=== PATIENT | male | born 1990 | race African-American/Black ===

== ENCOUNTER 2018-01-30 04:24 | Inpatient (IN) | payer MEDICAID, OTHER ==
[~2018-01-30] VITALS: Ht 177.8 cm; Wt 92.1 kg
[~2018-01-30 04:24] MED LIST: HALOPERIDOL 5 MG TABLET PO PRN; LORazepam 2 MG TABLET PO PRN; NOCURR; ZOLPIDEM TARTRATE 10 MG TABLET PO PRN
[2018-01-30] MEDS ORDERED: DiphenhydrAMINE HCL 50 MG/ML VIAL IM ONE (08:45)
[2018-01-30] MEDS ORDERED: LORazepam 2 MG/ML VIAL IM ONE (08:45)
[2018-01-30] MEDS ORDERED: HALOPERIDOL LACTATE 5 MG/ML VIAL IM ONE (08:45)
[2018-01-30] MEDS ORDERED: MAGNESIUM HYDROXIDE SUSPENSION 30 ML UDCUP PO PRN (11:00)
[2018-01-30] MEDS ORDERED: LOPERAMIDE HCL 2 MG CAPSULE PO PRN (11:00)
[2018-01-30] MEDS ORDERED: ONDANSETRON HCL 4 MG TABLET PO PRN (11:00)
[2018-01-30] MEDS ORDERED: BENZOCAINE/MENTHOL LOZENGE [8 LOZENGES/PACKET] MM PRN (11:00)
[2018-01-30] MEDS ORDERED: MAG HYDROX/AL HYDROX/SIMETH ES 30 ML SUSPENSION UDCUP PO PRN (11:00)
[2018-01-30] MEDS ORDERED: ALBUTEROL SULFATE HFA 90 MCG/PUFF 8 GM INHALER IH PRN (11:00)
[2018-01-30] MEDS ORDERED: BACITRACIN 28.4 GM OINTMENT TP PRN (11:00)
[2018-01-30] MEDS ORDERED: IBUPROFEN 600 MG TABLET PO PRN (11:00)
[2018-01-30] MEDS ORDERED: ACETAMINOPHEN 325 MG TABLET PO PRN (11:00)
[2018-01-30] MEDS ORDERED: CloNIDine HCL 0.1 MG TABLET PO PRN (11:00)
[2018-01-30] MEDS ORDERED: PETROLATUM,WHITE 71 GM JELLY TP PRN (11:00)
[2018-01-30 20:56] VITALS: BP 148/96
[2018-01-31 08:56] VITALS: BP 105/86
== END 2018-01-31 13:20 | disposition home or self-care (01) | DRG 750 ==
LOC: EMS 04:24 → 3EI 04:30 → 3EC 10:01
DX: F25.0 Schizoaffective disorder, bipolar type (principal); R45.851 Suicidal ideations; F41.9 Anxiety disorder, unspecified; F12.90 Cannabis use, unspecified, uncomplicated; G47.00 Insomnia, unspecified; M19.90 Unspecified osteoarthritis, unspecified site; M25.50 Pain in unspecified joint; F60.9 Personality disorder, unspecified; M79.673 Pain in unspecified foot; Z71.51 Drug abuse counseling and surveillance of drug abuser; Z79.899 Other long term (current) drug therapy
CPT/HCPCS: 99285

== ENCOUNTER 2022-05-23 20:23 | Inpatient (IN) | payer MEDICAID, OTHER ==
[~2022-05-23] VITALS: Ht 177.8 cm; Wt 121.4 kg
[~2022-05-23 20:23] MED LIST changes: -HALOPERIDOL 5 MG TABLET PO PRN; -LORazepam 2 MG TABLET PO PRN; -ZOLPIDEM TARTRATE 10 MG TABLET PO PRN
[2022-05-23] MEDS ORDERED: LORazepam 1 MG TABLET PO ONE (22:00)
[2022-05-23] MEDS ORDERED: OLANZapine 5 MG TABLET PO ONE (22:00)
[2022-05-23 22:08] LABS: BASOPHILS % (AUTO) 0.3 % (0.0-2.0); EOSINOPHILS % (AUTO) 1.1 % (1.0-6.0); HEMATOCRIT 40.6 % (41-53); HEMOGLOBIN 13.6 g/dL (13.5-17.5); LYMPHOCYTES # (AUTO) 2.3 K/uL (1.0-4.8); LYMPHOCYTES % (AUTO) 28.5 % (22.0-44.0); MEAN CORPUSCULAR HEMOGLOBIN 28.9 pg (26.0-34.0); MEAN CORPUSCULAR HGB CONC 33.5 G/dL (31.0-37.0); MEAN CORPUSCULAR VOLUME 86 fL (80-100); MONOCYTES # (AUTO) 0.5 K/uL (0.1-1.0); MONOCYTES % (AUTO) 6.5 % (2.0-9.0); NEUTROPHILS # (AUTO) 5.2 K/uL (1.8-7.7); NEUTROPHILS % (AUTO) 63.6 % (40.0-70.0); PLATELET COUNT (AUTO) 199 K/uL (150-450); RED CELL DISTRIBUTION WIDTH 14.7 % (11.5-14.5)
[2022-05-23 22:09] LABS: COVID AG,FIA SOURCE NASOPHARYNGEAL
[2022-05-23 22:17] LABS: ANION GAP 7 mmol/L (8-16); CALCIUM, TOTAL 9.8 mg/dL (8.8-10.5); CARBON DIOXIDE 31 mmol/L (22-29); CHLORIDE 102 mmol/L (98-107); CREATININE 0.96 mg/dL (0.60-1.30); GLOMERULAR FILTR. RATE CALC > 60 mL/min (>60); GLUCOSE,RANDOM 107 mg/dL (70-110); POTASSIUM 4.4 mmol/L (3.5-5.1); SODIUM SERUM 140 mmol/L (136-145); UREA NITROGEN, BLOOD 16 mg/dL (7-18)
[2022-05-23 22:22] LABS: ALANINE AMINOTRANSFERASE 59 U/L (12-78); ALBUMIN 3.6 g/dL (3.4-5.0); ALKALINE PHOSPHATASE 42 U/L (46-116); ASPARTATE AMINOTRANSFERASE 76 U/L (15-37); BILIRUBIN,TOTAL 0.2 mg/dL (0.1-1.0); TOTAL PROTEIN, SERUM 7.7 g/dL (6.4-8.2)
[2022-05-23] MEDS ORDERED: HALOPERIDOL 5 MG TABLET PO PRN (23:45)
[2022-05-24] LABS: APPEARANCE,URINE CLEAR (CLEAR); BILIRUBIN,URINE NEGATIVE (NEGATIVE); GLUCOSE, URINE (UA) NEGATIVE (NEGATIVE); KETONES,URINE NEGATIVE (NEGATIVE); LEUKOCYTE ESTERASE ,URINE NEGATIVE (NEGATIVE); NITRATE,URINE NEGATIVE (NEGATIVE); OCCULT BLOOD,URINE NEGATIVE (NEGATIVE); PROTEIN,URINE NEGATIVE (NEGATIVE); SPECIFIC GRAVITIY, URINE 1.026 (1.003-1.030); UROBILINOGEN,URINE <=1.0 mg/dL (<=1.0)
[2022-05-24 00:06] LABS: AMPHET/METH SCREEN,URINE NEGATIVE (NEGATIVE); BARBITURATE SCREEN, URINE NEGATIVE (NEGATIVE); BENZODIAZEPINES SCREEN,URINE NEGATIVE (NEGATIVE); CANNABINOID SCREEN,URINE POSITIVE (NEGATIVE); COCAINE SCREEN,URINE NEGATIVE (NEGATIVE); METHADONE SCREEN, URINE NEGATIVE (NEGATIVE); OPIATE SCREEN,URINE NEGATIVE (NEGATIVE)
[2022-05-24 00:07] LABS: PHENCYCLIDINE SCREEN,URINE POSITIVE (NEGATIVE)
[2022-05-24] MEDS: LORazepam 2 MG TABLET PO PRN ×2 (04:38→09:06)
[2022-05-24] MEDS: QUEtiapine FUMARATE 100 MG TABLET PO PRN ×2 (12:01→22:59)
[2022-05-24] MEDS ORDERED: DiphenhydrAMINE HCL 50 MG/ML VIAL IM ONE (15:00)
[2022-05-24] MEDS ORDERED: LORazepam 2 MG/ML VIAL IM ONE (15:00)
[2022-05-24] MEDS ORDERED: ChlorproMAZINE HCL 50 MG/2 ML AMP IM ONE (15:45)
[2022-05-24] MEDS ORDERED: MIDAZOLAM HCL 5 MG/ML VIAL IM ONE ×2 (18:40→18:45)
[2022-05-24 20:31] VITALS: BP 168/119
[2022-05-24] MEDS ORDERED: LOPERAMIDE HCL 2 MG CAPSULE PO PRN (21:30)
[2022-05-24] MEDS ORDERED: ONDANSETRON HCL 4 MG TABLET PO PRN (21:30)
[2022-05-24] MEDS ORDERED: DOCUSATE SODIUM 100 MG CAPSULE PO PRN (21:30)
[2022-05-24] MEDS ORDERED: MAG HYDROX/AL HYDROX/SIMETH ES 30 ML SUSPENSION UDCUP PO PRN (21:30)
[2022-05-24] MEDS ORDERED: NICOTINE 14 MG/24 HOUR PATCH TD PRN (21:30)
[2022-05-24] MEDS ORDERED: IBUPROFEN 400 MG TABLET PO PRN (21:30)
[2022-05-24] MEDS ORDERED: PETROLATUM,WHITE 28 GM JELLY TP PRN (21:30)
[2022-05-24] MEDS ORDERED: ALBUTEROL SULFATE HFA 90 MCG/PUFF 8 GM INHALER IH PRN (21:30)
[2022-05-24] MEDS ORDERED: CloNIDine HCL 0.1 MG TABLET PO PRN (21:30)
[2022-05-24] MEDS ORDERED: MAGNESIUM HYDROXIDE SUSPENSION 30 ML UDCUP PO PRN (21:30)
[2022-05-24] MEDS ORDERED: ACETAMINOPHEN 325 MG TABLET PO PRN (21:30)
[2022-05-24] MEDS ORDERED: GuaiFENesin/D-METHORPHAN [SUGAR-FREE] 200-20MG/10 ML SYRUP UDCUP PO PRN (21:30)
[2022-05-24] MEDS: ZOLPIDEM TARTRATE 10 MG TABLET PO PRN (22:59)
[2022-05-25 08:41] VITALS: BP 138/104
[2022-05-25] MEDS: FLUoxetine HCL 20 MG CAPSULE PO SCH (12:19)
[2022-05-25] MEDS: DIVALPROEX SODIUM 500 MG DR TABLET PO SCH ×2 (12:19→20:23)
[2022-05-25] MEDS: LORazepam 2 MG TABLET PO PRN ×2 (12:19→23:05)
[2022-05-25] MEDS ORDERED: IBUPROFEN 400 MG TABLET PO PRN (13:15)
[2022-05-25] MEDS ORDERED: CloNIDine HCL 0.1 MG TABLET PO PRN (13:15)
[2022-05-25] MEDS ORDERED: MAG HYDROX/AL HYDROX/SIMETH ES 30 ML SUSPENSION UDCUP PO PRN (13:15)
[2022-05-25] MEDS ORDERED: ACETAMINOPHEN 325 MG TABLET PO PRN (13:15)
[2022-05-25] MEDS ORDERED: PETROLATUM,WHITE 28 GM JELLY TP PRN (13:15)
[2022-05-25] MEDS ORDERED: GuaiFENesin/D-METHORPHAN [SUGAR-FREE] 200-20MG/10 ML SYRUP UDCUP PO PRN (13:15)
[2022-05-25] MEDS ORDERED: NICOTINE 14 MG/24 HOUR PATCH TD PRN (13:15)
[2022-05-25] MEDS ORDERED: ONDANSETRON HCL 4 MG TABLET PO PRN (13:15)
[2022-05-25] MEDS ORDERED: ALBUTEROL SULFATE HFA 90 MCG/PUFF 8 GM INHALER IH PRN (13:15)
[2022-05-25] MEDS ORDERED: LOPERAMIDE HCL 2 MG CAPSULE PO PRN (13:15)
[2022-05-25] MEDS ORDERED: DOCUSATE SODIUM 100 MG CAPSULE PO PRN (13:15)
[2022-05-25] MEDS ORDERED: MAGNESIUM HYDROXIDE SUSPENSION 30 ML UDCUP PO PRN (13:15)
[2022-05-25 16:07] VITALS: BP 135/88
[2022-05-25] MEDS: OLANZapine 10 MG TABLET PO SCH (20:23)
[2022-05-25] MEDS: ZOLPIDEM TARTRATE 10 MG TABLET PO PRN (23:05)
[2022-05-25] MEDS: QUEtiapine FUMARATE 100 MG TABLET PO PRN (23:59)
[2022-05-26] MEDS: LORazepam 2 MG TABLET PO PRN (08:09)
[2022-05-26] MEDS: DIVALPROEX SODIUM 500 MG DR TABLET PO SCH ×2 (08:09→20:12)
[2022-05-26] MEDS: FLUoxetine HCL 20 MG CAPSULE PO SCH (08:09)
[2022-05-26 16:01] VITALS: BP 119/73
[2022-05-26] MEDS: QUEtiapine FUMARATE 100 MG TABLET PO PRN (19:58)
[2022-05-26] MEDS: OLANZapine 10 MG TABLET PO SCH (20:12)
[2022-05-26] MEDS: ZOLPIDEM TARTRATE 10 MG TABLET PO PRN (21:46)
[2022-05-27 08:04] VITALS: BP 132/83
[2022-05-27] MEDS: DIVALPROEX SODIUM 500 MG DR TABLET PO SCH (08:41)
[2022-05-27] MEDS: LORazepam 2 MG TABLET PO PRN ×2 (08:41→17:50)
[2022-05-27] MEDS: FLUoxetine HCL 20 MG CAPSULE PO SCH (08:41)
[2022-05-27] MEDS: QUEtiapine FUMARATE 100 MG TABLET PO PRN (17:50)
== END 2022-05-27 19:00 | disposition home or self-care (01) | DRG 750 ==
LOC: EMS 20:30 → 3EC 05-24 17:40
PROVIDERS: ADMIT Psychiatry & Neurology Psychiatry; ATTEND Psychiatry & Neurology Psychiatry
DX: F25.1 Schizoaffective disorder, depressive type (principal); R45.851 Suicidal ideations; E66.01 Morbid (severe) obesity due to excess calories; E16.2 Hypoglycemia, unspecified; R74.01 Elevation of levels of liver transaminase levels; F12.10 Cannabis abuse, uncomplicated; F19.10 Other psychoactive substance abuse, uncomplicated; M19.90 Unspecified osteoarthritis, unspecified site; Z68.38 Body mass index [BMI] 38.0-38.9, adult; Z88.8 Allergy status to other drugs, medicaments and biological substances; Z59.00 Homelessness unspecified; Z79.899 Other long term (current) drug therapy; Z91.51 Personal history of suicidal behavior; Z63.4 Disappearance and death of family member
CPT/HCPCS: 80053; 81003; 84443; 85025; 87081; 99285; G0480; J1200; J2060; J2250; J3230